=== PATIENT | female | born 1990 | race Hispanic/Latino ===

== ENCOUNTER 2017-03-05 17:55 | Emergency (ER) | payer OTHER ==
--- NOTE | 2017-03-05 19:54 | ED NECK/BACK PAIN COMPLAINT ---
History of Present Illness General Chief Complaint: Low Back Pain/Injury Stated Complaint: LOW BACK PAIN S/P FALL Source: patient Exam Limitations: no limitations Vital Signs & Intake/Output Vital Signs & Intake/Output Vital Signs Date Time Temp Pulse Resp B/P B/P Pulse O2 O2 Flow FiO2 Mean Ox Delivery Rate 03/05 2127 97.3 76 14 120/70 99 Room Air 03/05 2125 Room Air 03/05 1819 96.5 75 15 122/70 99 Room Air Room Air Allergies Coded Allergies: No Known Allergies (03/05/17) Reconcile Medications Tramadol HCl 50 MG TABLET 1-2 TAB PO BIDP PRN pain Triage Note: PT TO ED FOR LOWER BACK PAIN AROUND COCCYX AREA THAT STARTED S/P FALL 10 DAYS AGO. PT WENT TO WALK IN CLINIC AND PRESCRIBED BACLOFEN AND NAPROXEN WITHOUT RELIEF. PAIN IS WORSE WHEN SITTING DOWN AND EVEN WORSE WHEN TRYING TO STAND UP. Triage Nurses Notes Reviewed? yes Onset: Abrupt Duration: week(s): (2), constant, continues in ED Timing: recent history Location: lumbar spine Method of Injury: fall : No Patient currently breastfeeds: No HPI: 26-year-old female comes into the emergency room for low back pain. Patient reports that 2 weeks ago she slipped on some steps and fell on her low back. She went to a walk-in clinic and was prescribed Naprosyn and baclofen. She reports she is still having pain and comes in requesting a x-ray of her low back. Hurts when she sits and when she stands. Certain movements. Denies any numbness tingling. Denies any weakness in her legs. Denies any persistent symptoms. (Medardo Ramirez) Past History Travel History Traveled to [place] past 21 day No Medical History Any Pertinent Medical History? see below for history Neurological: CHRONIC L FACIAL PARALYSI EENT: NONE Cardiovascular: NONE Respiratory: NONE Gastrointestinal: NONE Hepatic: NONE Renal: NONE Musculoskeletal: NONE Psychiatric: NONE Endocrine: NONE Blood Disorders: NONE Cancer(s): NONE Surgical History Surgical History: non-contributory Psychosocial History What is your primary language Sami Tobacco Use: Never used ETOH Use: denies use Illicit Drug Use: denies illicit drug use Family History Hx Contributory? No (Medardo Ramirez) Review of Systems Review of Systems Constitutional: Reports: no symptoms. Eyes: Reports: no symptoms. Ears, Nose, Throat, Mouth: Reports: no symptoms. Respiratory: Reports: no symptoms. Cardiovascular: Reports: no symptoms. Gastrointestinal/Abdominal: Reports: no symptoms. Musculoskeletal: Reports: see HPI. Skin: Reports: no symptoms. Neurological/Psychological: Reports: no symptoms. All Other Systems: Reviewed and Negative (Medardo Ramirez) Physical Exam Physical Exam General Appearance: well developed/nourished, mild distress Head: atraumatic Eyes: Bilateral: normal appearance. Ears, Nose, Throat, Mouth: hearing grossly normal, moist mucous membrane Neck: normal inspection Respiratory: normal breath sounds Back: normal inspection, midline tenderness, no crepitus, no brusing, mild swelling Extremities: normal range of motion Neurologic/Psych: awake, alert, oriented x 3, normal mood/affect Skin: intact, normal color, warm/dry Core Measures CVA/TIA Diagnosis: No (Medardo Ramirez) Progress Differential Diagnosis: herniated disc, myofascial strain, sciatica, spinal cord inj, contusion, spinous process fracture, Plan of Care: Orders Procedure Date/time Status URINE 03/05 1949 Complete Laboratory Tests 03/05/171950: Urine Test NEGATIVE Diagnostic Imaging: Viewed by Me: Radiology Read. Discussed w/RAD: Radiology Read. Radiology Impression: PATIENT: NELSON UNDERWOOD PRESENT AGE: 26 PATIENT ACCOUNT NO: [id number] : 92 LOCATION: [facility] ORDERING PHYSICIAN: Medardo WOODARD SERVICE DATE: 03/05/17 EXAM TYPE : RAD - XRY-LUMBOSACRAL SPINE 4 VIEWS EXAMINATION: XR LUMBOSACRAL SPINE CLINICAL INFORMATION: Low back pain after fall COMPARISON: None TECHNIQUE: 2 frontal and 2 lateral views of the lumbosacral spine obtained FINDINGS: The vertebral bodies and posterior elements are normal. The disc spaces are preserved and the vertebral alignment is normal. The paraspinal soft tissues are normal. IMPRESSION: Unremarkable examination. DICTATED BY: Neftaly Nguyen MD DATE/ TIME DICTATED:03/05/172046 BACTERIOLOGY RESEARCH ASSISTANT:GLADYS DATE/TIME TRANSCRIBED: 03/05/172046 CONFIDENTIAL, DO NOT COPY WITHOUT APPROPRIATE AUTHORIZATION. < Electronically signed in Other Vendor System> SIGNED BY: Neftaly Nguyen MD 03/05/172049 Comments: 03/05/2017 10:06:55 PM Patient's pain is all reproducible and lower back. Pain is worse with range of motion. No evidence of radiculopathy on exam. No urinary bowel dysfunction. No genital numbness. No weakness in the lower extremity. Normal dorsiflexion of great toe. Gross sensation intact. No saddle paresthesia. Considered things like cauda equina have a do not feel that patient's symptoms at this point in time are consistent with this diagnosis. Patient has no other symptoms that could be attributing to back pain. No abdominal pain, shortness of breath, chest pain. Patient is to follow-up with primary care doctor for recheck. If symptoms persist patient should be considered for an MRI of the lower back. Patient is to return immediately if any nausea vomiting, fever, weakness in the legs, urinary bowel dysfunction, abdominal pain, chest pain, shortness of breath. No weight loss. No night sweats. Pain is consistent with musculoskeletal/contusion due to the patient's symptoms mentioned above. (Deo WOODARD,Medardo) Departure Departure Disposition: HOME OR SELF CARE Condition: Stable Clinical Impression Primary Impression: Lumbar contusion Referrals: Unknown (PCP/Family) Additional Instructions: Continue taking medications that were prescribed to. Take tramadol for breakthrough pain. Rest. Please go over all results of today's visit with your primary care doctor. Contact your primary care doctor to let them know you were here in the emergency room. There may be nonspecific findings which may not be related to your visit today here in the emergency room but may require further evaluation and chronic monitoring by your primary care doctor. If you had a laceration today the chance of foreign body always remains. You should follow-up with your primary care doctor for recheck in 3-5 days for a wound check. If you had an x-ray done there is a chance that a fracture could have been missed on initial read and you should follow-up with your primary care doctor for repeat x-rays if symptoms persist. If your blood pressure was elevated here in the emergency room please have rechecked by [facility] primary care doctor within the next 48. If you were prescribed a narcotic here in the emergency room or any type of controlled substances you're not allowed to drive while taking this medication or operate any type of heavy machinery. Narcotics can make you feel lightheaded dizziness nausea and can cause constipation. You may need to berry picker a stool softener. Thank you for choosing [facility] emergency room. Please return to the emergency room immediately if you have any other concerns worsening of symptoms. Departure Forms: Customer Survey General Discharge Information Prescriptions: Current Visit Scripts Tramadol HCl 1-2 TAB PO BIDP PRN pain #15 TAB (Medardo Ramirez) PA/ENTERTAINMENT LAWYER Co-Sign Statement Statement: ED Attending supervision documentation- [] I saw and evaluated the patient. I have also reviewed all the pertinent lab results and diagnostic results. I agree with the findings and the plan of care as documented in the PA's/ENTERTAINMENT LAWYER's documentation. [X] I have reviewed the ED Record and agree with the PA's/ENTERTAINMENT LAWYER's documentation. [] Additions or exceptions (if any) to the PAs/ENTERTAINMENT LAWYER's note and plan are summarized below: [] (Bari BRICE,Fransisco Gavin)
--- NOTE | 2017-03-05 20:50 | RADIOLOGY REPORT ---
EXAMINATION: XR LUMBOSACRAL SPINE CLINICAL INFORMATION: Low back pain after fall COMPARISON: None TECHNIQUE: 2 frontal and 2 lateral views of the lumbosacral spine obtained FINDINGS: The vertebral bodies and posterior elements are normal. The disc spaces are preserved and the vertebral alignment is normal. The paraspinal soft tissues are normal. IMPRESSION: Unremarkable examination.
[2017-03-05] MEDS ORDERED: TRAMADOL HCL50 M1 PO (21:09)
[2017-03-05 21:28] VITALS: BP 120/70
== END 2017-03-05 21:28 ==
LOC: ERH 17:55
DX: S30.0XXA Contusion of lower back and pelvis, initial encounter (principal); W10.9XXA Fall (on) (from) unspecified stairs and steps, initial encounter; Y92.9 Unspecified place or not applicable; Y93.9 Activity, unspecified
CPT/HCPCS: 72110; 81025

== ENCOUNTER 2017-03-14 18:43 | Emergency (ER) | payer OTHER ==
[~2017-03-14] VITALS: Ht 157.5 cm; Wt 57.2 kg
[~2017-03-14 18:43] MED LIST: TRAMADOL HCL50 M1 PO
[2017-03-14 18:57] VITALS: BP 114/74
== END 2017-03-14 20:56 | disposition admitted as inpatient to this hospital (09) ==
LOC: ERH 18:43
DX: R07.9 Chest pain, unspecified (principal)
CPT/HCPCS: 93005; 93010; 99281